=== PATIENT | male | born 1980 | race Two or more races ===

== ENCOUNTER 2020-12-01 20:23 | Emergency (ER) | payer OTHER ==
[~2020-12-01] VITALS: Ht 175.3 cm; Wt 111.1 kg
[2020-12-01] MEDS ORDERED: FLAGYL500MG PO (23:54)
[2020-12-01] MEDS ORDERED: CIPRO500 MG PO (23:54)
== END 2020-12-02 02:12 | disposition home or self-care (01) ==
LOC: ER 20:23
DX: K57.92 Diverticulitis of intestine, part unspecified, without perforation or abscess without bleeding (principal)

== ENCOUNTER 2021-03-16 15:41 | Emergency (ER) | payer OTHER ==
[~2021-03-16] VITALS: Ht 182.9 cm; Wt 99.8 kg
[~2021-03-16 15:41] MED LIST: CIPRO500 MG PO; FLAGYL500MG PO
== END 2021-03-16 18:42 | disposition home or self-care (01) ==
LOC: ER 15:41
DX: M75.52 Bursitis of left shoulder (principal); S46.012A Strain of muscle(s) and tendon(s) of the rotator cuff of left shoulder, initial encounter; X58.XXXA Exposure to other specified factors, initial encounter; Y93.9 Activity, unspecified; Y92.9 Unspecified place or not applicable; Y99.9 Unspecified external cause status